=== PATIENT | female | born 1970 | race Caucasian/White ===

== ENCOUNTER → 2017-10-21 | Outpatient (CLI) | payer OTHER ==
--- NOTE | 2017-10-21 09:07 | DIAGNOSTIC IMAGING REPORT ---
RIGHT ANKLE 3 VIEWS HISTORY: RT PROXIMAL FOOT PAIN COMPARISON: None. FINDINGS: There is no fracture or dislocation. Soft tissues are unremarkable. Small plantar heel spur. IMPRESSION: No fracture or dislocation within the right ankle. Electronically signed by: Qasim Jason M.D. 10/21/2017 9:05 AM Dictated Date/Time: 10/21/2017 9:04 AM
--- NOTE | 2017-10-21 09:08 | DIAGNOSTIC IMAGING REPORT ---
R FOOT MIN 3 VIEWS ROUTINE HISTORY: 47 years-old Female RT PROXIMAL FOOT PAIN acute pain of the medial right foot status post trauma COMPARISON: Right ankle radiographs of same day TECHNIQUE: 3 views of the right foot FINDINGS: Mild degenerative changes of the first MTP joint. No acute fracture or subluxation identified. Accessory navicular and os peroneum are noted. No stress fracture is seen. Moderate plantar and small Achilles enthesophytes about the calcaneus. Soft tissues are unremarkable. IMPRESSION: 1. No acute fracture or subluxation. 2. Degenerative changes as above. The above report was generated using voice recognition software. It may contain grammatical, syntax or spelling errors. Electronically signed by: Enzo Devine M.D. 10/21/2017 9:06 AM Dictated Date/Time: 10/21/2017 9:04 AM
== END | disposition home or self-care (01) ==
LOC: C.RAD1850 08:40
PROVIDERS: ATTEND Nurse Practitioner Adult Health
DX: M79.671 Pain in right foot (principal)